=== PATIENT | female | born 1940 | race American Indian/Alaskan Native ===

== ENCOUNTER 2018-04-03 09:40 | Outpatient (CLI) | payer MEDICARE ==
[2018-04-03 10:38] LABS: Hematocrit 34.6 % (30.3-42.9); Hemoglobin 11.2 gm/dl (10.1-14.3); Mean Corpuscular HGB Conc 33 % (30-34); Mean Corpuscular Volume 92 fl (79-97); Platelet Count 421 K/mm3 (140-440); Red Blood Count 3.78 M/mm3 (3.65-5.03); Red Cell Distribution Width 18.1 % (13.2-15.2)
[2018-04-03 10:42] LABS: Albumin 3.6 g/dL (3.9-5); Calcium 9.7 mg/dL (8.4-10.2)
[2018-04-03 10:52] LABS: Chol/HDL Ratio 1.89 %
--- NOTE | 2018-04-03 11:17 | XRay Report ---
ABDOMEN, 2 views: History: Abdominal distention. There is no evidence of free air beneath the diaphragms. A large amount of stool is present throughout the length of the colon. There is no evidence of bowel dilatation, significant air-fluid levels, or pathologic calcifications. Organ shadows are unremarkable. IMPRESSION: Fecal retention.
[2018-04-03 12:30] LABS: Anisocytosis 1+; Basophils % (Manual) 0 % (0.0-1.8); Ovalocytes 1+; Platelet Estimate Consistent w Auto; Total Cells Counted 100
--- NOTE | 2018-04-03 14:23 | Cat Scan Report ---
CT CHEST WITHOUT CONTRAST: HISTORY: Right lung nodule. COMPARISON: No recent comparison at this facility. TECHNIQUE: Helical CT in 1.25mm intervals without IV contrast. Sagittal and coronal reformatted images. FINDINGS: Thyroid gland: The left thyroid lobe appears mildly enlarged and heterogeneous. No discrete nodule is identified on noncontrast CT. The right thyroid lobe is unremarkable. Tracheobronchial tree: Normal. Esophagus: Normal. Heart: Normal. Pericardium: Normal. Mediastinum: Normal. Lung Bishop: There is linear scarring in the right middle lobe measuring up to 7.0 x 2.9 cm in axial plane. The remaining lung parenchyma is within normal limits. No underlying parenchymal disease is appreciated. No pulmonary nodules detected on CT. Pleural Spaces: Normal. Musculoskeletal: Intact. Moderate thoracic spondylosis is noted. Advanced degenerative changes at the shoulders. IMPRESSION: No suspicious pulmonary nodule is identified. Focal scarring in the right middle lobe as described. Thoracic spondylosis. Mild enlargement of the left thyroid lobe, consider ultrasound correlation.
== END 2018-04-03 09:41 | disposition home or self-care (01) ==
LOC: CT 09:40
PROVIDERS: ATTEND Internal Medicine
DX: J18.9 Pneumonia, unspecified organism (principal); E04.9 Nontoxic goiter, unspecified; K59.00 Constipation, unspecified; M47.894 Other spondylosis, thoracic region; K21.9 Gastro-esophageal reflux disease without esophagitis; J45.909 Unspecified asthma, uncomplicated; E11.9 Type 2 diabetes mellitus without complications; E78.00 Pure hypercholesterolemia, unspecified; M19.90 Unspecified osteoarthritis, unspecified site; Z90.710 Acquired absence of both cervix and uterus
CPT/HCPCS: 36415; 71250; 74019; 80053; 80061; 82785; 84436; 84443; 85007; 85025

== ENCOUNTER 2018-07-12 11:54 | Outpatient (CLI) | payer MEDICARE ==
--- NOTE | 2018-07-12 12:50 | XRay Report ---
ROUTINE CHEST, TWO VIEWS: HISTORY: Cough, difficulty in breathing. The trachea, heart, mediastinal contour, lung alicea and bony thorax are unremarkable. IMPRESSION: Unremarkable chest x-ray.
== END 2018-07-12 11:55 | disposition home or self-care (01) ==
LOC: XRAY 11:54
PROVIDERS: ATTEND Internal Medicine Hematology & Oncology
DX: R05 Cough (principal); I10 Essential (primary) hypertension; E78.00 Pure hypercholesterolemia, unspecified; J45.909 Unspecified asthma, uncomplicated; E11.9 Type 2 diabetes mellitus without complications; M19.90 Unspecified osteoarthritis, unspecified site; Z90.710 Acquired absence of both cervix and uterus
CPT/HCPCS: 71046

== ENCOUNTER 2019-09-05 17:08 | Outpatient (CLI) | payer MEDICARE ==
--- NOTE | 2019-09-05 17:58 | XRay Report ---
ABDOMEN 1 VIEW INDICATION / CLINICAL INFORMATION: Central abdominal pain. COMPARISON: Abdominal series from 04/03/2018. FINDINGS: TUBES / LINES: None. BOWEL GAS PATTERN: The colon contains a large amount of stool. No dilated bowel loops are seen. FREE AIR / EXTRALUMINAL GAS: None seen. ADDITIONAL FINDINGS: Degenerative changes are present throughout the spine. IMPRESSION: Findings consistent with constipation. Signer Name: Dl Jefferson MD Signed: 09/05/2019 5:54 PM Workstation Name: [id number]
[2019-09-05 18:41] LABS: Hematocrit 40.8 % (30.3-42.9); Hemoglobin 13.3 gm/dl (10.1-14.3); Mean Corpuscular HGB Conc 33 % (30-34); Mean Corpuscular Volume 97 fl (79-97); Platelet Count 278 K/mm3 (140-440); Red Blood Count 4.21 M/mm3 (3.65-5.03); Red Cell Distribution Width 15.4 % (13.2-15.2)
[2019-09-05 18:59] LABS: Albumin 4.2 g/dL (3.9-5); C-Reactive Protein 1.5 mg/dL (0.00-1.30); Calcium 10.2 mg/dL (8.4-10.2)
[2019-09-05 19:05] LABS: Free T4 (Free Thyroxine) 0.91 ng/dL (0.76-1.46)
[2019-09-05 19:25] LABS: Chol/HDL Ratio 2.92 %
== END 2019-09-05 17:09 | disposition home or self-care (01) ==
LOC: LAB 17:08
PROVIDERS: ATTEND Internal Medicine Hematology & Oncology
DX: R10.9 Unspecified abdominal pain (principal); I10 Essential (primary) hypertension; E11.9 Type 2 diabetes mellitus without complications
CPT/HCPCS: 36415; 74018; 80053; 80061; 83036; 83550; 84439; 84443; 85027; 86140

== ENCOUNTER 2021-02-12 17:42 | Emergency (ER) | payer MEDICARE ==
[2021-02-12] MEDS ORDERED: HYDROmorphone 1 MG/1 ML INJ IM ONE (18:11)
[2021-02-12] MEDS ORDERED: ONDANSETRON 4 MG ODT TAB PO ONE (18:11)
--- NOTE | 2021-02-12 18:14 | Emergency Department Report ---
ED Fall HPI - General Chief Complaint: Fall Stated Complaint: FELL Time Seen by Provider: 02/12/21 18:04 Source: patient Mode of arrival: Ambulatory - History of Present Illness Initial Comments: Patient presents with a fall. She fell twice today. The first time she slid out of bed onto her rear end. She states that her feet slid out from under her. Subsequent to that, she was sitting in a chair at her desk. She states she started to stand up in the chair "threw her." She landed on her left side. She was brought in by family by private auto due to the pain. She reports pain in the left ribs, left shoulder, left hip, and down the left leg. She states that her head does not hurt. She did not hit her head or lose consciousness. She has been having pain throughout the day and decided to come in. She did not take anything for pain. She has no fevers or chills per there is no cough congestion. Has no blurred vision or double vision. There is no incontinence of bowel or bladder. She does have chronic left shoulder pain due to rotator cuff problems. - Related Data Home Medications Medication Instructions Recorded Confirmed Last Taken Insulin Glargine,Hum.rec.anlog 25 units SQ QHS 10/21/13 05/19/14 04/11/14 [Lantus VIAL] Montelukast Sodium 5 mg PO DAILY 10/21/13 05/19/14 05/19/14 06:00 Ranitidine HCl [Zantac] 300 mg PO QDAY 10/21/13 05/19/14 05/12/14 Albuterol Sulfate [Ventolin HFA] 18 gm IH Q4HR PRN 10/23/13 05/19/14 05/19/14 06:00 Difluprednate [Durezol 0.05%] 1 drop OP BID 10/23/13 05/19/14 05/18/14 Fluticasone [Flonase] 1 spray NS BID 10/23/13 05/19/14 05/19/14 06:00 Atorvastatin [Lipitor] 40 mg PO QHS 05/19/14 05/19/14 05/18/14 Isosorbide Dinitrate 30 mg PO QDAY 05/19/14 05/19/14 05/19/14 06:00 Pantoprazole [Protonix] 40 mg PO QDAY 05/19/14 05/19/14 05/19/14 06:00 Valsartan [Diovan] 160 mg PO QDAY 05/19/14 05/19/14 05/18/14 glyBURIDE/METFORMIN HCL 1 tab PO TID 05/19/14 05/19/14 05/19/14 06:00 [glyBURIDE-Metformin 1.25-250 mg] levETIRAcetam [Keppra] 500 mg PO BID 05/19/14 05/19/14 05/19/14 06:00 Previous Rx's Medication Instructions Recorded Last Taken Type DAPTOmycin 450 mg IV Q48H 42 Days vial 11/29/13 05/15/14 Rx Insulin Glargine,Hum.rec.anlog 10 unit SQ QAM 30 Days ml 11/29/13 04/11/14 Rx [Lantus] Allergies Allergy/AdvReac Type Severity Reaction Status Date / Time codeine Allergy Swelling Verified 10/21/13 09:46 iodine Allergy Swelling Verified 10/21/13 09:47 morphine Allergy Unknown Verified 10/29/19 21:06 Penicillins Allergy Swelling Verified 10/21/13 09:47 Sulfa (Sulfonamide Allergy Swelling Verified 10/21/13 09:47 Antibiotics) ED Review of Systems ROS: Stated complaint: FELL Other details as noted in HPI Comment: All other systems reviewed and negative Constitutional: denies: fever Eyes: denies: eye pain ENT: denies: throat pain Respiratory: denies: cough Cardiovascular: as per HPI Gastrointestinal: denies: abdominal pain Genitourinary: denies: dysuria Musculoskeletal: denies: back pain Skin: denies: rash Neurological: denies: headache Hematological/Lymphatic: denies: easy bruising ED Past Medical Hx - Past Medical History Hx Hypertension: Yes (1986) Hx Diabetes: Yes Hx Liver Disease: No Hx Renal Disease: No Hx Arthritis: Yes Hx Seizures: No Hx Asthma: Yes (multiple attacks with associated CP) Hx HIV: No Additional medical history: Fibroid mylgia - Surgical History Hx Coronary Stent: Yes (1998) Additional Surgical History: stent placed . hx. lbundle branch block - Family History Family history: hypertension - Social History Smoking Status: Never Smoker - Medications Home Medications: Home Medications Medication Instructions Recorded Confirmed Last Taken Type Insulin Glargine,Hum.rec.anlog 25 units SQ QHS 10/21/13 05/19/14 04/11/14 History [Lantus VIAL] Montelukast Sodium 5 mg PO DAILY 10/21/13 05/19/14 05/19/14 06:00 History Ranitidine HCl [Zantac] 300 mg PO QDAY 10/21/13 05/19/14 05/12/14 History Albuterol Sulfate [Ventolin HFA] 18 gm IH Q4HR PRN 10/23/13 05/19/14 05/19/14 06:00 History Difluprednate [Durezol 0.05%] 1 drop OP BID 10/23/13 05/19/14 05/18/14 History Fluticasone [Flonase] 1 spray NS BID 10/23/13 05/19/14 05/19/14 06:00 History DAPTOmycin 450 mg IV Q48H 42 Days vial 11/29/13 05/19/14 05/15/14 Rx Insulin Glargine,Hum.rec.anlog 10 unit SQ QAM 30 Days ml 11/29/13 05/19/14 04/11/14 Rx [Lantus] Atorvastatin [Lipitor] 40 mg PO QHS 05/19/14 05/19/14 05/18/14 History Isosorbide Dinitrate 30 mg PO QDAY 05/19/14 05/19/14 05/19/14 06:00 History Pantoprazole [Protonix] 40 mg PO QDAY 05/19/14 05/19/14 05/19/14 06:00 History Valsartan [Diovan] 160 mg PO QDAY 05/19/14 05/19/14 05/18/14 History glyBURIDE/METFORMIN HCL 1 tab PO TID 05/19/14 05/19/14 05/19/14 06:00 History [glyBURIDE-Metformin 1.25-250 mg] levETIRAcetam [Keppra] 500 mg PO BID 05/19/14 05/19/14 05/19/14 06:00 History ED Physical Exam - General Limitations: No Limitations, Other (Pulse ox is noted to) General appearance: alert, in no apparent distress - Head Head exam: Present: atraumatic, normocephalic - Eye Eye exam: Present: normal appearance, EOMI. Absent: scleral icterus - ENT ENT exam: Present: normal exam, normal orophraynx, normal external ear exam - Neck Neck exam: Present: normal inspection. Absent: tenderness, meningismus - Respiratory Respiratory exam: Present: normal lung sounds bilaterally. Absent: respiratory distress - Cardiovascular Cardiovascular Exam: Present: regular rate, normal rhythm - GI/Abdominal GI/Abdominal exam: Present: soft. Absent: distended, tenderness - Extremities Exam Extremities exam: Present: normal capillary refill, other (There is diffuse tenderness with palpation of the left hip laterally. There is no deformity.). Absent: calf tenderness - Back Exam Back exam: Absent: CVA tenderness (R), CVA tenderness (L) - Neurological Exam Neurological exam: Present: alert, oriented X3, CN II-XII intact, reflexes normal. Absent: motor sensory deficit - Psychiatric Psychiatric exam: Present: normal affect, normal mood - Skin Skin exam: Present: warm, dry ED Course Vital Signs 02/12/21 02/12/21 17:56 18:53 Temperature 97.7 F Pulse Rate 88 Respiratory 18 Rate Blood Pressure 168/82 O2 Sat by Pulse 99 96 Oximetry - Reevaluation(s) Reevaluation #1: 02/12/21 18:13 X-rays and analgesics ordered. Old records reviewed. Reevaluation #2: 02/12/21 19:[address] were noted. ED Medical Decision Making - Radiology Data Radiology results: report reviewed - Medical Decision Making Patient presents with injuries from a fall. There is no evidence of acute rib fracture or pneumothorax. She does not have obvious pulmonary contusion. She did not have any blunt abdominal trauma that would have suggested splenic injury. She has no flank pain. There is no peritoneal finding. Patient does not have a hip fracture despite having reports of left hip pain. She has been ambulatory. I believe that her injuries are soft tissue related. She can be treated symptomatically and followed up by her regular doctor. We have discussed fall risk at home. Critical care attestation.: If time is entered above; I have spent that time in minutes in the direct care of this critically ill patient, excluding procedure time. ED Disposition Clinical Impression: Fall Qualifiers: Encounter type: initial encounter Qualified Code(s): W19.XXXA - Unspecified fall, initial encounter Contusion of left hip Qualifiers: Encounter type: initial encounter Qualified Code(s): S70.02XA - Contusion of left hip, initial encounter Chest wall contusion Qualifiers: Encounter type: initial encounter Laterality: left Qualified Code(s): S20.212A - Contusion of left front wall of thorax, initial encounter Disposition: 01 HOME / SELF CARE / HOMELESS Is pt being admited?: No Condition: Stable Instructions: How to Use Cold Therapy, [id number]-[id number], Contusion, Blunt Chest Trauma Additional Instructions: Apply ice to sore areas. Use Tylenol for pain. Return for problems. Follow-up with your regular doctor for recheck and further management. If you do not have a doctor, follow-up with the referral physician. Referrals: PRIMARY CAREMD [Referring] - 3-5 Days CRISTO BRADLEY MD [Staff Physician] - 3-5 Days
--- NOTE | 2021-02-12 18:54 | Cat Scan Report ---
CT CHEST WITHOUT IV CONTRAST INDICATION: Chest pain after fall. COMPARISON: None available. TECHNIQUE: All CT scans at this location are performed using CT dose reduction for ALARA by means of automated e xposure control. Axial CT images were obtained through the chest. FINDINGS: Upper Abdomen: No acute abnormality. Skeletal System: No acute abnormality. Chest: Great Vessels: No acute abnormality. Heart: Heart size is normal. There is moderate coronary artery calcification. Mediastinum & Jacquelyn: No mediastinal mass or hematoma is seen. The esophagus is patulous and fluid-fill ed throughout. This could be seen in the setting of reflux, achalasia, or dysmotility. Lungs: No acute air space or interstitial disease. There is a 5 mm subsolid nodule in the posterior left lower lobe on series 2 image 64. Pleura: No significant pleural effusion. No pneumothorax. Additional Findings: The thyroid is enlarged. There is a peripherally calcified lesion in the lateral left thyroid lobe measuring 9 mm. IMPRESSION: 1. No acute findings in the chest. 2. Single incidental pulmonary nodule(s) in the left lower lobe measuring 5 mm with subsolid (ground glass) characteristics. - Recommendation according to Fleischner Society 2017 Guidelines: No routine follow-up. 3. Additional findings as above. Signer Name: Jonathon Parsons MD Signed: 02/12/2021 6:49 PM Workstation Name: [id number]
--- NOTE | 2021-02-12 18:59 | XRay Report ---
AP PELVIS INDICATION / CLINICAL INFORMATION: Fall with pelvic and left hip pain. COMPARISON: None available. FINDINGS: BONES / JOINT(S): There is advanced lower lumbar spondylosis. The hip and SI joint spaces are well-ma intained. There is no evidence of acute fracture or subluxation. SOFT TISSUES: No significant abnormality. ADDITIONAL FINDINGS: None. IMPRESSION: No acute abnormality. Signer Name: Gal Osman MD Signed: 02/12/2021 6:55 PM Workstation Name: [id number]
[2021-02-12 20:30] LABS: Bacteria,Urine 1+ /HPF (Negative); Bilirubin,Urine NEG (Negative); Blood,Urine NEG (Negative); Color,Urine Yellow (Yellow); Urobilinogen,Urine < 2.0 mg/dL (<2.0)
[2021-02-12] MEDS ORDERED: cephALEXin 500 MG CAP PO ONE (20:36)
[2021-02-12 20:47] VITALS: BP 161/72
== END 2021-02-12 20:51 | disposition home or self-care (01) ==
LOC: EDBD 17:42 → ED 17:42
DX: S70.02XA Contusion of left hip, initial encounter (principal); S20.212A Contusion of left front wall of thorax, initial encounter; R07.81 Pleurodynia; M75.102 Unspecified rotator cuff tear or rupture of left shoulder, not specified as traumatic; I10 Essential (primary) hypertension; E11.8 Type 2 diabetes mellitus with unspecified complications; M19.90 Unspecified osteoarthritis, unspecified site; J45.909 Unspecified asthma, uncomplicated; M79.7 Fibromyalgia; Z98.890 Other specified postprocedural states; Z88.5 Allergy status to narcotic agent; Z88.0 Allergy status to penicillin; Z88.1 Allergy status to other antibiotic agents; Z91.018 Allergy to other foods; W06.XXXA Fall from bed, initial encounter; Y93.89 Activity, other specified; Y92.89 Other specified places as the place of occurrence of the external cause; Y99.8 Other external cause status
CPT/HCPCS: 71250; 72170; 81001; 87086; 96372; 99284; J1170; Q0162

== ENCOUNTER 2021-11-01 11:00 | Outpatient (CLI) | payer MEDICARE | END 2021-11-01 11:01 | disposition home or self-care (01) | LOC: SLR 11:00 | PROVIDERS: ATTEND Internal Medicine | DX: G47.30 Sleep apnea, unspecified (principal) | CPT/HCPCS: 95810 ==

== ENCOUNTER → 2021-11-18 | Outpatient (CLI) | payer MEDICARE | END | disposition home or self-care (01) | LOC: SLR 11:00 | PROVIDERS: ATTEND Internal Medicine | DX: G47.30 Sleep apnea, unspecified (principal) | CPT/HCPCS: 95810 ==

== ENCOUNTER → 2021-12-01 | Outpatient (CLI) | payer MEDICARE | END | disposition home or self-care (01) | LOC: SLR 11:00 | PROVIDERS: ATTEND Internal Medicine | DX: G47.33 Obstructive sleep apnea (adult) (pediatric) (principal) | CPT/HCPCS: 95811 ==